=== PATIENT | female | born 1945 | race Caucasian/White ===

== ENCOUNTER 2018-03-13 09:51 | Inpatient (IN) ==
[2018-03-13 10:58] LABS: Basophils % 0.4 % (0.0-0.8); Eosinophils # 0.2 10*3/uL (0.0-0.87); Eosinophils % 8.1 % (0.00-10.9); Hematocrit 27.8 VOL% (35.7-47.0); Immature Granulocytes % 13.2 %; Immature Granulocytes Absolute 0.36 #; Lymphocytes # 0.1 10*3/uL (1.4-4.0); Lymphocytes % 5.1 % (21.3-54.2); Mean Corpuscular HGB Conc 32.4 GM/DL (32-36); Mean Corpuscular Hemoglobin 29 PG (27-34); Mean Platelet Volume 10.6 FL (9.6-12.0); Monocytes # 0.3 10*3/uL (0.11-0.8); Monocytes % 9.6 % (1.7-12.7); Neutrophils # 1.7 10*3/uL (1.4-7.4); Neutrophils % 63.6 % (38.7-73.9); Platelet Count 178 T/CUMM (130-400); Red Blood Count 3.16 MC/CUMM (3.8-5.5); Red Cell Distribution Width 14.7 % (9.3-17.3); White Blood Count 2.7 T/CUMM (4-12)
[2018-03-13 11:23] LABS: Alanine Aminotransferase 30 U/L (13-56); Albumin 3.1 G/DL (3.4-5.0); Alkaline Phosphatase 115 U/L (45-117); Aspartate Amino Transferase 26 U/L (0-37); Bilirubin,Total < 0.39 MG/DL (0.2-1.0); Blood Urea Nitrogen 21 MG/DL (7-18); Calcium 8.4 MG/DL (8.5-10.1); Glucose 89 MG/DL (74-106); Osmolality,Calculated 269.2 MOS/KG (273-304); Potassium 4.9 MMOL/L (3.5-5.1); Sodium 134 MMOL/L (136-145); Total Protein 6.2 G/DL (6.4-8.3)
[2018-03-13 11:26] LABS: RBC,Urine 49276 /HPF (0-4); WBC,Urine 110 /HPF (0-6)
[2018-03-13 11:31] LABS: Apearance,Urine Turbid (Clear); Urine Color Red (Yellow); Urine Specific Gravity 1.005 (1.001-1.035)
[2018-03-13 11:32] LABS: Bilirubin,Urine Negative (Negative); Blood, Urine Large mg/dL (Negative); Glucose,Urine (UA) Negative (Negative); Ketones,Urine Negative (Negative); Nitrite,Urine Negative (Negative); Protein,Urine >500 MG/DL; Urine Urobilinogen 0.2 EU/DL (0.2-1.0)
[2018-03-13] MEDS ORDERED: SODIUM CHLORIDE 0.9% 1,000 ML IV STA (11:34)
[2018-03-13 11:35] LABS: Band Neutrophils 21 % (0-10); Eosinophils 11 % (0-10); Hypochromasia 1+; Lymphocytes 8 % (20-55); Myelocytes 1 %; Platelet Estimate Normal; Segmented Neutrophils 49 % (50-85); Total Cells Counted 100
[2018-03-13] MEDS ORDERED: AMPICILLIN/SULBACTAM 3,000 MG in SODIUM CHLORIDE 0.9% 100 ML IV STA (12:10)
[2018-03-13] MEDS ORDERED: SODIUM CHLORIDE 0.9% 1,700 ML IV ONE (12:57)
[2018-03-13] MEDS ORDERED: ACETAMINOPHEN 325 MG TABLET PO PRN (12:59)
[2018-03-13] MEDS ORDERED: ONDANSETRON 4 MG/2 ML VIAL IV PRN (12:59)
[2018-03-13] MEDS: SODIUM CHLORIDE 0.9% 1,000 ML IV SCH ×2 (14:47→18:41)
[2018-03-13] MEDS: LEVOFLOXACIN INJ 500 MG in PREMIX 1 EACH IV SCH (18:39)
[2018-03-13] MEDS ORDERED: POLYETHYLENE GLYCOL POWDER 255 GM BOTTLE PO SCH (21:00)
[2018-03-13] MEDS: MEROPENEM 1,000 MG in SODIUM CHLORIDE 0.9% 100 ML IV SCH (21:47)
[2018-03-13] MEDS: OXYBUTYNIN XL 15 MG TABLET PO SCH (21:48)
[2018-03-13] MEDS: MYLANTA/LIDO VISC/NYST 180 ML BOTTLE SWISH/SPIT SCH (21:48)
[2018-03-13] MEDS: POLYETHYLENE GLYCOL POWDER 17 GM PACK PO SCH (21:48)
[2018-03-14] MEDS: MEROPENEM 1,000 MG in SODIUM CHLORIDE 0.9% 100 ML IV SCH ×3 (05:00→23:44)
[2018-03-14 06:25] LABS: Eosinophils # 0.2 10*3/uL (0.0-0.87); Eosinophils % 10.4 % (0.00-10.9); Hematocrit 25.5 VOL% (35.7-47.0); Immature Granulocytes % 14.8 %; Immature Granulocytes Absolute 0.27 #; Lymphocytes # 0.1 10*3/uL (1.4-4.0); Lymphocytes % 4.9 % (21.3-54.2); Mean Corpuscular HGB Conc 31.4 GM/DL (32-36); Mean Corpuscular Hemoglobin 28 PG (27-34); Mean Corpuscular Volume 89.5 FL (87-102); Mean Platelet Volume 10.8 FL (9.6-12.0); Monocytes # 0.2 10*3/uL (0.11-0.8); Monocytes % 11.5 % (1.7-12.7); Neutrophils # 1.1 10*3/uL (1.4-7.4); Neutrophils % 58.4 % (38.7-73.9); Platelet Count 177 T/CUMM (130-400); Red Blood Count 2.85 MC/CUMM (3.8-5.5); Red Cell Distribution Width 14.8 % (9.3-17.3); White Blood Count 1.8 T/CUMM (4-12)
[2018-03-14 06:53] LABS: Band Neutrophils 21 % (0-10); Eosinophils 11 % (0-10); Lymphocytes 9 % (20-55); Platelet Estimate Normal; Segmented Neutrophils 47 % (50-85); Total Cells Counted 100
[2018-03-14 06:54] LABS: Hypochromasia 1+; Ovalocytes Slight
[2018-03-14 06:57] LABS: Albumin 2.5 G/DL (3.4-5.0); Bilirubin,Total 0.5 MG/DL (0.2-1.0); Osmolality,Calculated 275.5 MOS/KG (273-304); Potassium 3.9 MMOL/L (3.5-5.1); Total Protein 5.3 G/DL (6.4-8.3)
[2018-03-14] MEDS ORDERED: MELOXICAM 7.5 MG TABLET PO SCH (09:00)
[2018-03-14] MEDS ORDERED: ASPIRIN EC 81 MG TABLET PO SCH (09:00)
[2018-03-14] MEDS ORDERED: SODIUM CHLORIDE 0.9% 1,000 ML IV PRN (10:34)
[2018-03-14] MEDS: buPROPion SR 150 MG TABLET PO SCH (10:42)
[2018-03-14] MEDS: MYLANTA/LIDO VISC/NYST 180 ML BOTTLE SWISH/SPIT SCH ×2 (10:42→14:08)
[2018-03-14] MEDS: LEVOTHYROXINE 25 MCG TABLET PO SCH (10:42)
[2018-03-14] MEDS: MULTIVITAMIN (CENTRUM) TABLET PO SCH (10:42)
[2018-03-14] MEDS: CETIRIZINE 10 MG TABLET PO SCH (10:42)
[2018-03-14] MEDS: PANTOPRAZOLE 40 MG TABLET PO SCH (10:42)
[2018-03-14 10:50] LABS: % Iron Saturation 30.2 % (18-50)
[2018-03-14] MEDS: LEVOFLOXACIN INJ 500 MG in PREMIX 1 EACH IV SCH (13:57)
[2018-03-14] MEDS: MYLANTA/LIDO VISC/NYST 180 ML BOTTLE SWISH/SWAL SCH ×2 (17:33→21:19)
[2018-03-14] MEDS: SODIUM CHLORIDE 0.9% 1,000 ML IV SCH ×3 (17:33→23:43)
[2018-03-14] MEDS: POLYETHYLENE GLYCOL POWDER 17 GM PACK PO SCH (21:13)
[2018-03-14] MEDS: OXYBUTYNIN XL 15 MG TABLET PO SCH (21:13)
[2018-03-15 04:19] LABS: Basophils % 0.8 % (0.0-0.8); Eosinophils # 0.2 10*3/uL (0.0-0.87); Eosinophils % 9.5 % (0.00-10.9); Hematocrit 31.3 VOL% (35.7-47.0); Hemoglobin 10.2 GM/DL (12.0-16.0); Immature Granulocytes % 9.9 %; Immature Granulocytes Absolute 0.25 #; Lymphocytes # 0.2 10*3/uL (1.4-4.0); Lymphocytes % 7.1 % (21.3-54.2); Mean Corpuscular HGB Conc 32.6 GM/DL (32-36); Mean Corpuscular Hemoglobin 29 PG (27-34); Mean Corpuscular Volume 87.7 FL (87-102); Mean Platelet Volume 10.1 FL (9.6-12.0); Monocytes # 0.3 10*3/uL (0.11-0.8); Neutrophils # 1.5 10*3/uL (1.4-7.4); Neutrophils % 59.7 % (38.7-73.9); Platelet Count 175 T/CUMM (130-400); Red Blood Count 3.57 MC/CUMM (3.8-5.5); White Blood Count 2.5 T/CUMM (4-12)
[2018-03-15 04:59] LABS: Alanine Aminotransferase 20 U/L (13-56); Albumin 2.5 G/DL (3.4-5.0); Alkaline Phosphatase 90 U/L (45-117); Aspartate Amino Transferase 19 U/L (0-37); Bilirubin,Total < 0.39 MG/DL (0.2-1.0); Blood Urea Nitrogen 15 MG/DL (7-18); Calcium 8.1 MG/DL (8.5-10.1); Glucose 93 MG/DL (74-106); Osmolality,Calculated 277.5 MOS/KG (273-304); Potassium 3.6 MMOL/L (3.5-5.1); Sodium 139 MMOL/L (136-145); Total Protein 5.2 G/DL (6.4-8.3)
[2018-03-15 05:17] LABS: Band Neutrophils 12 % (0-10); Eosinophils 11 % (0-10); Hypochromasia 1+; Lymphocytes 11 % (20-55); Metamyelocytes 2 %; Microcytosis 1+; Segmented Neutrophils 50 % (50-85); Total Cells Counted 100
[2018-03-15 05:18] LABS: Atypical Lymphocytes Few; Elliptocytes Few; Platelet Estimate Adequate
[2018-03-15] MEDS: MEROPENEM 1,000 MG in SODIUM CHLORIDE 0.9% 100 ML IV SCH ×3 (06:30→23:33)
[2018-03-15] MEDS: LEVOTHYROXINE 25 MCG TABLET PO SCH (06:30)
[2018-03-15] MEDS: MULTIVITAMIN (CENTRUM) TABLET PO SCH (08:21)
[2018-03-15] MEDS: buPROPion SR 150 MG TABLET PO SCH (08:21)
[2018-03-15] MEDS: CETIRIZINE 10 MG TABLET PO SCH (08:21)
[2018-03-15] MEDS: PANTOPRAZOLE 40 MG TABLET PO SCH (08:21)
[2018-03-15] MEDS: MYLANTA/LIDO VISC/NYST 180 ML BOTTLE SWISH/SWAL SCH ×4 (08:21→21:36)
[2018-03-15] MEDS: SODIUM CHLORIDE 0.9% 1,000 ML IV SCH (12:56)
[2018-03-15] MEDS: LEVOFLOXACIN INJ 500 MG in PREMIX 1 EACH IV SCH (14:16)
[2018-03-15] MEDS: POLYETHYLENE GLYCOL POWDER 17 GM PACK PO SCH (21:30)
[2018-03-15] MEDS: OXYBUTYNIN XL 15 MG TABLET PO SCH (21:34)
[2018-03-16] MEDS: SODIUM CHLORIDE 0.9% 1,000 ML IV SCH ×2 (02:57→21:46)
[2018-03-16 04:51] LABS: Basophils % 0.4 % (0.0-0.8); Eosinophils # 0.2 10*3/uL (0.0-0.87); Eosinophils % 6.7 % (0.00-10.9); Hematocrit 31.8 VOL% (35.7-47.0); Hemoglobin 10.5 GM/DL (12.0-16.0); Immature Granulocytes % 6.3 %; Immature Granulocytes Absolute 0.15 #; Lymphocytes # 0.1 10*3/uL (1.4-4.0); Lymphocytes % 5.5 % (21.3-54.2); Mean Corpuscular Hemoglobin 28 PG (27-34); Mean Corpuscular Volume 84.4 FL (87-102); Mean Platelet Volume 10.6 FL (9.6-12.0); Monocytes # 0.3 10*3/uL (0.11-0.8); Monocytes % 11.3 % (1.7-12.7); NRBC # 0.02 10*3/uL; Neutrophils # 1.7 10*3/uL (1.4-7.4); Neutrophils % 69.8 % (38.7-73.9); Platelet Count 195 T/CUMM (130-400); Red Blood Count 3.77 MC/CUMM (3.8-5.5); White Blood Count 2.4 T/CUMM (4-12)
[2018-03-16 05:31] LABS: Alanine Aminotransferase 17 U/L (13-56); Albumin 2.7 G/DL (3.4-5.0); Alkaline Phosphatase 91 U/L (45-117); Aspartate Amino Transferase 17 U/L (0-37); Bilirubin,Total < 0.39 MG/DL (0.2-1.0); Blood Urea Nitrogen 14 MG/DL (7-18); Calcium 8.6 MG/DL (8.5-10.1); Glucose 112 MG/DL (74-106); Osmolality,Calculated 280.4 MOS/KG (273-304); Potassium 3.3 MMOL/L (3.5-5.1); Sodium 140 MMOL/L (136-145); Total Protein 5.3 G/DL (6.4-8.3)
[2018-03-16 06:48] LABS: Anisocytosis Slight; Band Neutrophils 19 % (0-10); Eosinophils 6 % (0-10); Lymphocytes 6 % (20-55); Metamyelocytes 6 %; Myelocytes 2 %; Ovalocytes 1+; Platelet Estimate Normal; Segmented Neutrophils 49 % (50-85); Total Cells Counted 100
[2018-03-16 06:49] LABS: Elliptocytes Few; Macrocytosis Slight
[2018-03-16] MEDS: LEVOTHYROXINE 25 MCG TABLET PO SCH (07:16)
[2018-03-16] MEDS: MEROPENEM 1,000 MG in SODIUM CHLORIDE 0.9% 100 ML IV SCH ×3 (07:17→23:41)
[2018-03-16] MEDS: CETIRIZINE 10 MG TABLET PO SCH (08:04)
[2018-03-16] MEDS: MULTIVITAMIN (CENTRUM) TABLET PO SCH (08:04)
[2018-03-16] MEDS: PANTOPRAZOLE 40 MG TABLET PO SCH (08:04)
[2018-03-16] MEDS: MYLANTA/LIDO VISC/NYST 180 ML BOTTLE SWISH/SWAL SCH ×4 (08:04→22:06)
[2018-03-16] MEDS: buPROPion SR 150 MG TABLET PO SCH (08:04)
[2018-03-16] MEDS: LEVOFLOXACIN INJ 500 MG in PREMIX 1 EACH IV SCH (13:08)
[2018-03-16] MEDS: POTASSIUM CHLORIDE 20 MEQ TABLET PO PRN ×2 (21:44→23:50)
[2018-03-16] MEDS: OXYBUTYNIN XL 15 MG TABLET PO SCH (21:44)
[2018-03-16] MEDS: POLYETHYLENE GLYCOL POWDER 17 GM PACK PO SCH (21:45)
[2018-03-17] MEDS: POTASSIUM CHLORIDE 20 MEQ TABLET PO PRN ×2 (02:30)
[2018-03-17 05:50] LABS: Basophils % 0.4 % (0.0-0.8); Eosinophils # 0.2 10*3/uL (0.0-0.87); Eosinophils % 6.5 % (0.00-10.9); Hematocrit 31.9 VOL% (35.7-47.0); Hemoglobin 10.6 GM/DL (12.0-16.0); Immature Granulocytes % 5.7 %; Immature Granulocytes Absolute 0.16 #; Lymphocytes # 0.2 10*3/uL (1.4-4.0); Lymphocytes % 5.4 % (21.3-54.2); Mean Corpuscular HGB Conc 33.2 GM/DL (32-36); Mean Corpuscular Hemoglobin 28 PG (27-34); Mean Corpuscular Volume 85.5 FL (87-102); Mean Platelet Volume 10.3 FL (9.6-12.0); Monocytes # 0.3 10*3/uL (0.11-0.8); Monocytes % 11.5 % (1.7-12.7); Neutrophils % 70.5 % (38.7-73.9); Platelet Count 215 T/CUMM (130-400); Red Blood Count 3.73 MC/CUMM (3.8-5.5); Red Cell Distribution Width 15.1 % (9.3-17.3); White Blood Count 2.8 T/CUMM (4-12)
[2018-03-17] MEDS: LEVOTHYROXINE 25 MCG TABLET PO SCH ×2 (05:50→09:32)
[2018-03-17 06:16] LABS: Band Neutrophils 17 % (0-10); Eosinophils 3 % (0-10); Hypochromasia 1+; Lymphocytes 10 % (20-55); Ovalocytes Slight; Platelet Estimate Adequate; Segmented Neutrophils 58 % (50-85); Total Cells Counted 100
[2018-03-17 06:17] LABS: Microcytosis Slight
[2018-03-17 06:19] LABS: Albumin 2.7 G/DL (3.4-5.0); Bilirubin,Total 0.5 MG/DL (0.2-1.0); Calcium 8.6 MG/DL (8.5-10.1); Osmolality,Calculated 277.5 MOS/KG (273-304); Potassium 4.1 MMOL/L (3.5-5.1); Total Protein 5.4 G/DL (6.4-8.3)
[2018-03-17] MEDS: SODIUM CHLORIDE 0.9% 1,000 ML IV SCH ×3 (06:59→12:22)
[2018-03-17] MEDS: MEROPENEM 1,000 MG in SODIUM CHLORIDE 0.9% 100 ML IV SCH (07:03)
[2018-03-17] MEDS: MYLANTA/LIDO VISC/NYST 180 ML BOTTLE SWISH/SWAL SCH ×3 (07:30→12:05)
[2018-03-17] MEDS ORDERED: DEXTROSE 5% NACL 0.45% 1,000 ML IV SCH (08:00)
[2018-03-17] MEDS ORDERED: LIDOCAINE 2% TOP JELLY 20 ML VIAL INTRAURETH ONE (08:18)
[2018-03-17] MEDS: CETIRIZINE 10 MG TABLET PO SCH (09:31)
[2018-03-17] MEDS: MULTIVITAMIN (CENTRUM) TABLET PO SCH (09:31)
[2018-03-17] MEDS: buPROPion SR 150 MG TABLET PO SCH (09:31)
[2018-03-17] MEDS: PANTOPRAZOLE 40 MG TABLET PO SCH (09:32)
[2018-03-17 12:28] VITALS: BP 163/78
== END 2018-03-17 13:45 | disposition home or self-care (01) | DRG 690 ==
LOC: N.ED 09:51 → SUATTDRO 12:59 → N.EDINP 12:59 → N.2W 14:03 → N.5E 15:21
PROVIDERS: ADMIT Internal Medicine; ATTEND Internal Medicine